=== PATIENT | female | born 1980 | race African-American/Black ===

== ENCOUNTER 2018-09-13 17:58 | Emergency (ER) | payer MEDICAID ==
[~2018-09-13] VITALS: Ht 165.1 cm; Wt 85.0 kg
[2018-09-13] MEDS ORDERED: SODIUM CHLORIDE 0.9% 1000ML BAG (SEPSIS BOLUS) IV ONE (19:15)
[2018-09-13 19:27] LABS: CLARITY URINE CLEAR (CLEAR); COLOR URINE YELLOW (YELLOW); KETONES URINE NEGATIVE (NEGATIVE); LEUKOCYTE ESTERASE URINE NEGATIVE (NEGATIVE); NITRITE URINE NEGATIVE (NEGATIVE); OCCULT BLOOD URINE NEGATIVE (NEGATIVE); PROTEIN URINE NEGATIVE (NEGATIVE); SPECIFIC GRAVITY URINE 1.017 (1.005-1.030)
[2018-09-13 19:28] LABS: BASOPHILS % 0.5 % (0.0-2.0); EOSINOPHILS % 9.6 % (0.0-5.0); HEMATOCRIT. 35.6 % (36.0-48.0); HEMOGLOBIN. 11.9 g/dL (12.0-16.0); LYMPHOCYTES % 37.6 % (20.0-50.0); MEAN CORPUSCULAR HEMOGLOBIN 25.6 pg (28.0-32.0); MEAN CORPUSCULAR VOLUME 76.7 fL (81.0-99.0); MEAN PLATELET VOLUME 7.4 fl (7.4-10.4); MONOCYTES % 9.8 % (2.0-8.0); NEUTROPHILS % 42.5 % (40.0-76.0); PLATELET 240 x1000/uL (130-400); RED BLOOD CELL COUNT 4.64 mill/uL (4.2-5.4); RED CELL DISTRIBUTION WIDTH 14.3 % (11.6-14.6)
[2018-09-13 19:33] LABS: CHLORIDE 104 mEq/L (98-107)
[2018-09-13 19:35] LABS: PROTHROMBIN TIME 10.5 sec (9.6-11.0)
[2018-09-13] MEDS ORDERED: ALBUTEROL (0.083%) 2.5MG/3ML NEB HHN STA (19:42)
[2018-09-13] MEDS ORDERED: IPRATROPIUM BROMIDE (0.02%) 0.5MG/2.5ML NEB HHN STA (19:42)
[2018-09-13] MEDS ORDERED: METHYLPREDNISOLONE SOD SUCC 125 MG/2 ML VIAL IV NR (20:30)
[2018-09-13] MEDS ORDERED: ALBUTEROL (0.5%) 2.5MG/0.5ML NEB HHN ONE (22:15)
[2018-09-13 22:41] VITALS: BP 164/86
== END 2018-09-13 22:41 | disposition home or self-care (01) ==
LOC: ER 17:58
DX: J45.909 Unspecified asthma, uncomplicated (principal); R06.00 Dyspnea, unspecified; R00.0 Tachycardia, unspecified; I11.0 Hypertensive heart disease with heart failure; I50.9 Heart failure, unspecified; F17.200 Nicotine dependence, unspecified, uncomplicated
CPT/HCPCS: 36415; 71045; 80053; 81003; 81025; 83605; 84145; 84484; 85025; 85610; 87040; 87086; 93005; 94640; 94644; 96374; 96375; 99285; J2930; J7030; J7611